=== PATIENT | male | born 1980 | race Caucasian/White ===

== ENCOUNTER 2019-11-13 11:13 | Emergency (ER) | payer BC, SELFPAY ==
[~2019-11-13] VITALS: Ht 172.7 cm; Wt 81.6 kg
[2019-11-13 11:14] VITALS: Ht 172.7 cm; Wt 81.6 kg
[2019-11-13 13:34] VITALS: BP 103/65
== END 2019-11-13 13:34 | disposition home or self-care (01) ==
LOC: ED 11:13
DX: U07.1 COVID-19 (principal); J12.89 Other viral pneumonia
CPT/HCPCS: J0696; Q0092; U0003-CS